=== PATIENT | female | born 1965 | race Caucasian/White ===

== ENCOUNTER 2017-12-05 13:55 | Outpatient (CLI) | payer BC, MEDICARE | END 2017-12-05 13:56 | disposition home or self-care (01) | LOC: BICMAMMO 13:55 | PROVIDERS: ATTEND Internal Medicine | DX: Z13.820 Encounter for screening for osteoporosis (principal); M85.80 Other specified disorders of bone density and structure, unspecified site; M85.859 Other specified disorders of bone density and structure, unspecified thigh; M85.88 Other specified disorders of bone density and structure, other site | CPT/HCPCS: 77080 ==